=== PATIENT | female | born 1975 | race American Indian/Alaskan Native ===

== ENCOUNTER 2021-03-18 14:28 | Outpatient (CLI) | payer BC | END 2021-03-18 14:29 | disposition home or self-care (01) | LOC: SPVWC 14:28 | PROVIDERS: ATTEND Surgery | DX: N60.02 Solitary cyst of left breast (principal); N63.42 Unspecified lump in left breast, subareolar; Z80.3 Family history of malignant neoplasm of breast; Z80.42 Family history of malignant neoplasm of prostate | CPT/HCPCS: 76642; 77066; G0279 ==

== ENCOUNTER 2021-04-14 09:15 | Outpatient (CLI) | payer BC ==
--- NOTE | 2021-04-14 12:01 | Magnetic Resonance Report ---
BILATERAL BREAST MRI WITH AND WITHOUT CONTRAST CLINICAL INFORMATION/INDICATION: The patient has a history of recent palpable left breast lump. She i s recently undergone diagnostic mammogram and ultrasound which demonstrated a subcentimeter oval left breast mass which has been mammographically stable since 2016. This study is also done as a high ris k screening evaluation due to strong family history and genetic testing. TECHNICAL: Axial T1 and T2-weighted fat sat images were obtained precontrast. Gadolinium-based contra st was injected intravenously and serial axial T1 weighted images with fat saturation were obtained. 3-D MIP projections, kinetic analysis and subtraction imaging was utilized to evaluate. A dedicated 8 -channel breast coil was used for image acquisition. COMPARISON: Diagnostic mammogram and ultrasound, 03/18/2021. Bilateral mammogram, 08/23/2016 FINDINGS: There is minimal background enhancement within both breasts. Right breast: No dominant mass or suspicious area of enhancement is seen in the right breast. Left breast: No dominant mass or suspicious area of enhancement is seen in the left breast. There is a 5 mm oval intramammary lymph node at the 8:00 position middle depth. This corresponds to the patien t's area of palpable concern noted on the diagnostic mammogram and ultrasound. This lymph node demons trates a normal morphology with a thin cortex and preserved fatty hilum. Incidentally noted is a 5 mm cyst in the far posterior left breast. Axilla: No pathologically enlarged axillary lymph nodes are identified. Additional findings: Limited imaging of the thorax and upper abdomen demonstrates no focal abnormalit y. IMPRESSION: 1. No MRI abnormality of either breast. 2. Intramammary lymph node in the medial left breast as described above and representing a benign fin ding. This finding appears to represent the area of palpable concern identified by the patient. This has a benign morphology by MRI and has been mammographically stable since 2016. Follow up recommendation: Routine yearly BI-RADS Category 2: Benign. Signer Name: Rita Barrientos MD Signed: 04/14/2021 11:57 AM Workstation Name: [id number]
== END 2021-04-14 09:16 | disposition home or self-care (01) ==
LOC: SPVIMAG 09:15
PROVIDERS: ATTEND Surgery
DX: N63.21 Unspecified lump in the left breast, upper outer quadrant (principal); N64.89 Other specified disorders of breast; R59.0 Localized enlarged lymph nodes; Z80.3 Family history of malignant neoplasm of breast
CPT/HCPCS: A9575; C8908; 77049